=== PATIENT | male | born 1935 | race Caucasian/White ===

== ENCOUNTER → 2016-08-19 | Outpatient (CLI) | payer MEDICARE ==
[2016-08-19 13:19] LABS: POTASSIUM 4.3 MEQ/L (3.5-5.1)
[2016-08-19 13:21] LABS: HDL CHOLESTEROL 44.9 MG/DL (40.0-60.0)
== END ==
LOC: OLAB 07:58
PROVIDERS: ATTEND Family Medicine
DX: E78.00 Pure hypercholesterolemia, unspecified (principal); I10 Essential (primary) hypertension; Z13.1 Encounter for screening for diabetes mellitus
CPT/HCPCS: 36415; 80048; 80061; 84460

== ENCOUNTER → 2017-07-16 | Outpatient (CLI) | payer MEDICARE ==
[2017-07-16 10:34] LABS: BICARBONATE 30.1 MEQ/L (21.0-32.0); CREATININE 1.08 MG/DL (0.60-1.30)
[2017-07-16 10:37] LABS: CHOLESTEROL/ HDL RATIO 3.84 RATIO; HDL CHOLESTEROL 47.8 MG/DL (40.0-60.0)
== END ==
LOC: OLAB 08:10
PROVIDERS: ATTEND Family Medicine
DX: M10.071 Idiopathic gout, right ankle and foot (principal); I10 Essential (primary) hypertension; E78.00 Pure hypercholesterolemia, unspecified; Z13.1 Encounter for screening for diabetes mellitus
CPT/HCPCS: 36415; 80048; 80061; 84550